=== PATIENT | female | born 1985 | race Caucasian/White ===

== ENCOUNTER 2016-08-28 12:20 | Emergency (ER) | payer OTHER ==
[~2016-08-28] VITALS: Ht 152.4 cm; Wt 80.0 kg
[~2016-08-28 12:20] MED LIST: ALBUTEROL
[2016-08-28 12:27] VITALS: BP 130/75
== END 2016-08-28 22:00 | disposition left against medical advice (07) ==
LOC: ER 21:48
DX: R00.2 Palpitations (principal); Z53.21 Procedure and treatment not carried out due to patient leaving prior to being seen by health care provider
CPT/HCPCS: 93005